=== PATIENT | male | born 1965 | race African-American/Black ===

== ENCOUNTER 2018-05-26 13:10 | Inpatient (IN) | payer OTHER ==
[2018-05-26 13:18] VITALS: BMI 21.5
--- NOTE | 2018-05-26 17:20 | HP ---
Admission ROS [facility] Chief Complaint: crack /cocaine and alcohol rehabilitation Allergies/Adverse Reactions: Allergies Allergy/AdvReac Type Severity Reaction Status Date / Time Penicillins Allergy Unknown Verified 05/26/18 16:22 History of Present Illness: 52 yo male with hx of nicotine, crack / cocaine and alcohol dependence is here seeking rehab. Last detox three yeas ago at [facility]. Patient was admitted to [facility] 05/18/18 -05/21/18 altered mental status, treated for pneumonia and give a follow up appt on medicine dept at [place] [phone]. Reports fall last night, does not recollect how he fell, has small abrasion on the right eye lid, and right red eye, reports hit the right side of his face with an unknown object, and did not seek medical attention for the fall. PMHX: HTN, anemia. Denies suicidal / homicidal ideation. Longest period of sobriety eight months ago. Denies hx of seizures or blackouts. Exam Limitations: No Limitations - Ebola screening Have you traveled outside of the country in the last 21 days: No Have you had contact with anyone from an Ebola affected area: No Have you been sick,other than usual withdrawal symptoms: No Do you have a fever: No - Review of Systems Constitutional: No Symptoms Reported EENT: reports: See HPI Respiratory: reports: No Symptoms reported Cardiac: reports: No Symptoms Reported GI: reports: No Symptoms Reported : reports: No Symptoms Reported Musculoskeletal: reports: No Symptoms Reported Integumentary: reports: No Symptoms Reported Neuro: reports: No Symptoms reported Endocrine: reports: No Symptoms Reported Hematology: reports: See HPI, Anemia Psychiatric: reports: Orientated x3, Anxious Other Systems: Reviewed and Negative Patient History - Patient Medical History Hx Anemia: Yes Hx Asthma: No Hx Chronic Obstructive Pulmonary Disease (COPD): No Hx Cancer: No Hx Cardiac Disorders: No Hx Congestive Heart Failure: No Hx Hypertension: Yes Hx Hypercholesterolemia: No Hx Pacemaker: No HX Cerebrovascular Accident: No Hx Seizures: No Hx Dementia: No Hx Diabetes: No Hx Gastrointestinal Disorders: No Hx Liver Disease: No Hx Genitourinary Disorders: No Hx Sexually Transmitted Disorders: No Hx Renal Disease (ESRD): No Hx Thyroid Disease: No Hx Human Immunodeficiency Virus (HIV): Yes (Last tested three months ago reports NEG results ) Hx Hepatitis C: No Hx Depression: No Hx Suicide Attempt: No Hx Bipolar Disorder: No Hx Schizophrenia: No - Patient Surgical History Past Surgical History: No - PPD History Previous Implant?: No Documented Results: Negative w/proof PPD to be Administered?: Yes - Smoking Cessation Smoking history: Current every day smoker Have you smoked in the past 12 months: Yes Aproximately how many cigarettes per day: 20 Hx Chewing Tobacco Use: No Initiated information on smoking cessation: Yes 'Breaking Loose' booklet given: 05/26/18 - Substance & Tx. History Hx Alcohol Use: Yes Hx Substance Use: Yes Substance Use Type: Alcohol, Cocaine Hx Substance Use Treatment: Yes ([facility] three years ago ) - Substances Abused Alcohol Route: Oral Frequency: 1-2 times per week Amount used: 1 pint Age of first use: 9 Date of Last Use: 05/24/18 Crack Route: Smoking Frequency: Daily Amount used: $100 and up Age of first use: 18 Date of Last Use: 05/18/18 Family Disease History - Family Disease History Family History: Denies Admission Physical Exam [facility] - Vital Signs Vital Signs: Vital Signs - 24 hr 05/26/18 13:17 Temperature 98.7 F Pulse Rate 88 Respiratory 18 Rate Blood Pressure 147/97 - Physical General Appearance: Yes: Disheveled, Thin, Anxious HEENTM: Yes: Hearing grossly Normal, Normocephalic, Normal Voice, MERLENE, Pharynx Normal, Tm's normal, Lessions (right eye lid), Other (right eye erythema) Respiratory: Yes: Chest Non-Tender, Lungs Clear, Normal Breath Sounds, No Respiratory Distress, No Accessory Muscle Use Neck: Yes: Within Normal Limits Breast: Yes: Breast Exam Deferred Cardiology: Yes: Regular Rhythm, Regular Rate Abdominal: Yes: Normal Bowel Sounds, Non Tender, Flat, Soft Genitourinary: Yes: Within Normal Limits Back: Yes: Normal Inspection Musculoskeletal: Yes: full range of Motion, Gait Steady, Pelvis Stable Extremities: Yes: Normal Capillary Refill, Normal Inspection, Normal Range of Motion, Non-Tender Neurological: Yes: vegetable preparer II-XII NML intact, Fully Oriented, Alert, Motor Strength 5/5, Depressed Affect Integumentary: Yes: Normal Color, Warm, Moist Lymphatic: Yes: Within Normal Limits - Diagnostic (1) Hypertension Current Visit: Yes Status: Chronic Qualifiers: Hypertension type: essential hypertension Qualified Code(s): I10 - Essential (primary) hypertension (2) Anemia Current Visit: Yes Status: Chronic Qualifiers: Anemia type: unspecified type Qualified Code(s): D64.9 - Anemia, unspecified (3) Fall Current Visit: Yes Status: Acute Qualifiers: Encounter type: subsequent encounter Qualified Code(s): W19.XXXD - Unspecified fall, subsequent encounter (4) Alcohol dependence Current Visit: Yes Status: Acute Qualifiers: Substance use status: uncomplicated Qualified Code(s): F10.20 - Alcohol dependence, uncomplicated (5) Cocaine dependence Current Visit: Yes Status: Acute Qualifiers: Substance use status: uncomplicated Qualified Code(s): F14.20 - Cocaine dependence, uncomplicated Screened but not Admitted - Documentation of Visit Screened but not Admitted: Yes Left Prior to Completion of Assessment: No Insurance Authorization Denied: No Patient Does Not Meet Criteria for Admission: No Level of Care Recommended at this Time: ER Evaluation/Care (Patient suffered fall last night and injury to the right side of the face with unknown object. Tranferred to [facility] for further evaluation, transferred via [facility], endorsed to LUNA Travis and Dr. Jenkins.) [facility] Breath Alcohol Content Breath Alcohol Content: 0 Urine Drug Screen - Results Drug Screen Negative: Yes
[2018-05-26] MEDS ORDERED: hydrOXYzine PAMOATE 50 MG CAPSULE (FP) PO PRN (21:24)
[2018-05-26] MEDS ORDERED: IBUPROFEN 400 MG TABLET (FP) PO PRN (21:24)
[2018-05-26] MEDS ORDERED: ACETAMINOPHEN 325 MG TABLET (FP) PO PRN (21:24)
[2018-05-26] MEDS ORDERED: MAGNESIUM CITRATE 300 ML BOTTLE PO PRN (21:24)
[2018-05-26] MEDS ORDERED: P-EPHED 60MG/TRIPROLIDI 2.5MG TABLET PO PRN (21:24)
[2018-05-26] MEDS ORDERED: guaiFENesin/D-METHORPHAN HB 10 ML UNIT-DOSE CUPS PO PRN (21:24)
[2018-05-26] MEDS ORDERED: MENTHOL/PHENOL 1 EACH UD MM PRN (21:24)
[2018-05-26] MEDS ORDERED: LOPERAMIDE HCL 2 MG CAPSULE PO PRN (21:24)
[2018-05-26] MEDS ORDERED: MAG HYDROX/AL HYDROX/SIMETH 30 ML UNIT-DOSE CUP PO PRN (21:24)
[2018-05-26] MEDS ORDERED: NICOTINE POLACRILEX 2 MG GUM BUC PRN (21:24)
[2018-05-26] MEDS ORDERED: MAGNESIUM HYDROX 2400MG/30ML ORAL SUSPENSION 30 ML CUP PO PRN (21:24)
[2018-05-26] MEDS ORDERED: MELATONIN 5 MG TABLETS PO PRN (22:00)
[2018-05-26] MEDS ORDERED: TUBERCULIN PPD 5 TU/0.1ML VIAL ID ONE (23:44)
[2018-05-26] MEDS: THIAMINE HCL 100 MG TABLET (FP) PO SCH (23:53)
--- NOTE | 2018-05-27 07:33 | HP ---
Psychiatrist Admission - Data Date of interview: 05/27/18 Admission source: Outreach Identifying data: This is the first [facility] admission for 52 years old single Black male, father of a 30 years old son, unemployed with no source of income, living with family Medical History: Significant for anemia, hypertension and history of recent treatment for pneumonia at [facility] from 05/18/18 to 05/21/18. Patient told board writer that he was at [facility] for high blood pressure, not for pneumonia. However he is on Clindamycin Smokes cigarettes 1 ppd Psychiatric History: Denies history of previous psychiatric treatment Physical/Sexual Abuse/Trauma History: Denies history of emotional, physical or sexual abuse as well as DV relationship. No service Additional Comment: Reports history of multiple previous arrests including 4 felony convictions. Denies being on parole/probation at present Vital Signs: Vital Signs - 24 hr 05/26/18 05/26/18 05/27/18 13:17 23:53 00:30 Temperature 98.7 F 97.8 F Pulse Rate 88 90 Respiratory 18 18 18 Rate Blood Pressure 147/97 141/102 H 05/27/18 05/27/18 03:30 07:01 Temperature 99.1 F Pulse Rate 82 Respiratory 18 18 Rate Blood Pressure 143/89 Allergies/Adverse Reactions: Allergies Allergy/AdvReac Type Severity Reaction Status Date / Time Penicillins Allergy Unknown Verified 05/26/18 18:53 Date of last physical exam: 05/26/18 Concur with the findings of this exam: Yes - Substance Abuse/Tx History Hx Alcohol Use: Yes Hx Substance Use: Yes Substance Use Type: Alcohol (Started drinking alcohol at age 9, consumes one pint 1-2 times weekly. Last drank on 05/24/18), Cocaine (Started smoking crack cocaine at age 18, consumes $100 worth daily. Last smoked on 05/18/18) Hx Substance Use Treatment: Yes (@ previous inpt detox & 2 inpt rehab admissions ) Mental Status Exam - Mental Status Exam Alert and Oriented to: Time, Place, Person Cognitive Function: Fair Patient Appearance: Disheveled (Scar on left left side of face. Abraision right eyelid and redness right eye) Mood: Depressed Affect: Appropriate Patient Behavior: Cooperative Speech Pattern: Clear Voice Loudness: Normal Thought Process: Intact Thought Disorder: Not Present Hallucinations: Denies Suicidal Ideation: Denies Homicidal Ideation: Denies Insight/Judgement: Fair Sleep: Well Appetite: Good Muscle strength/Tone: Normal Gait/Station: Normal Psychiatric Findings - Problem List ([place] 1, 2,3) (1) Alcohol dependence Current Visit: Yes Status: Acute Qualifiers: Substance use status: uncomplicated Qualified Code(s): F10.20 - Alcohol dependence, uncomplicated (2) Cocaine dependence Current Visit: Yes Status: Acute Qualifiers: Substance use status: uncomplicated Qualified Code(s): F14.20 - Cocaine dependence, uncomplicated (3) Nicotine dependence Current Visit: Yes Status: Chronic (4) Anemia Current Visit: Yes Status: Chronic Qualifiers: Anemia type: unspecified type Qualified Code(s): D64.9 - Anemia, unspecified (5) Hypertension Current Visit: Yes Status: Chronic Qualifiers: Hypertension type: essential hypertension Qualified Code(s): I10 - Essential (primary) hypertension - Initial Treatment Plan Initial Treatment Plan: Monitor progress
[2018-05-27] MEDS: NICOTINE 14 MG/24 HOURS TOPICAL PATCH TD SCH (10:25)
[2018-05-27] MEDS: PRENATAL VITAMINS W/ FOLIC ACID TABLET (FP) PO SCH (10:26)
[2018-05-27] MEDS: amLODIPine BESYLATE 10 MG TABLET (FP) PO SCH (10:26)
[2018-05-27] MEDS: HYDROCHLOROTHIAZIDE 25 MG TABLET (FP) PO SCH (10:26)
--- NOTE | 2018-05-27 11:06 | EKG ---
Test Reason : Blood Pressure : / mmHG Vent. Rate : 083 BPM Atrial Rate : 083 BPM P-R Int : 168 ms QRS Dur : 094 ms QT Int : 384 ms P-R-T Axes : 066 057 070 degrees QTc Int : 451 ms NORMAL SINUS RHYTHM NORMAL ECG NO PREVIOUS ECGS AVAILABLE Confirmed by Osiel Smyth MD ([id number]) on 05/27/2018 11:06:17 AM Referred By: Confirmed By:Osiel Smyth MD
--- NOTE | 2018-05-27 11:20 | PN ---
[facility] Progress Note Note: ABRASION RIGHT EYELID DUE TO FALL PRE-ADMISSION. SEE H/P. BACITRACIN OINTMENT DIRECTED.
[2018-05-27] MEDS: PATIENT'S OWN MEDICATION (NON-FORMULARY) (Clindamycin [Cleocin -] 300 MG) PO SCH ×4 (11:26→17:09)
[2018-05-27] MEDS: BACITRACIN 0.9 GM PACKET TP SCH ×2 (11:31→21:09)
[2018-05-27 14:54] LABS: HEMOGLOBIN 14.4 GM/dL (11.7-16.9); MCH 28.3 pg (25.7-33.7); MCHC 31.9 g/dl (32.0-35.9); MEAN CELL VOLUME 88.6 fl (80-96); PLATELET COUNT 381 K/MM3 (134-434); RBC 5.08 M/mm3 (4.00-5.60); RDW 13.8 % (11.9-15.9); WHITE BLOOD COUNT 6.7 K/mm3 (4.0-10.0)
[2018-05-27 15:31] LABS: ALK PHOS 66 U/L (45-117); ANION GAP 6 MMOL/L (8-16); BILIRUBIN,TOTAL 0.4 mg/dL (0.2-1); BLOOD UREA NITROGEN 14 mg/dL (7-18); CALCIUM 8.7 mg/dL (8.5-10.1); CHLORIDE 105 mmol/L (98-107); CO2 30 mmol/L (21-32); CREATININE 0.8 mg/dL (0.55-1.3); GLUCOSE,RANDOM 77 mg/dL (74-106); POTASSIUM 4.2 mmol/L (3.5-5.1); SGOT/AST 33 U/L (15-37); SGPT/ALT 93 U/L (13-61); SODIUM 141 mmol/L (136-145); TOT PROT 6.7 g/dl (6.4-8.2)
[2018-05-27 18:52] LABS: URINE APPEARANCE CLEAR; URINE BILIRUBIN NEGATIVE (<2.0 mg/dL); URINE COLOR YELLOW; URINE GLUCOSE (UA) NEGATIVE (NEGATIVE); URINE KETONE NEGATIVE (NEGATIVE); URINE LEUK ESTERASE NEGATIVE (NEGATIVE); URINE NITRITE NEGATIVE (NEGATIVE); URINE PROTEIN NEGATIVE (NEGATIVE); URINE UROBILINOGEN NEGATIVE mg/dL (0.2-1.0)
[2018-05-27] MEDS: THIAMINE HCL 100 MG TABLET (FP) PO SCH (21:09)
[2018-05-28] MEDS: PATIENT'S OWN MEDICATION (NON-FORMULARY) (Clindamycin [Cleocin -] 300 MG) PO SCH ×4 (01:18→17:28)
[2018-05-28] MEDS: BACITRACIN 0.9 GM PACKET TP SCH ×2 (10:07→21:12)
[2018-05-28] MEDS: NICOTINE 14 MG/24 HOURS TOPICAL PATCH TD SCH (10:08)
[2018-05-28] MEDS: amLODIPine BESYLATE 10 MG TABLET (FP) PO SCH (10:08)
[2018-05-28] MEDS: HYDROCHLOROTHIAZIDE 25 MG TABLET (FP) PO SCH (10:08)
[2018-05-28] MEDS: PRENATAL VITAMINS W/ FOLIC ACID TABLET (FP) PO SCH (10:08)
[2018-05-28] MEDS: THIAMINE HCL 100 MG TABLET (FP) PO SCH (21:12)
[2018-05-29] MEDS: PATIENT'S OWN MEDICATION (NON-FORMULARY) (Clindamycin [Cleocin -] 300 MG) PO SCH ×5 (00:10→23:15)
[2018-05-29] MEDS: BACITRACIN 0.9 GM PACKET TP SCH ×2 (09:47→21:12)
[2018-05-29] MEDS: HYDROCHLOROTHIAZIDE 25 MG TABLET (FP) PO SCH (09:47)
[2018-05-29] MEDS: amLODIPine BESYLATE 10 MG TABLET (FP) PO SCH (09:47)
[2018-05-29] MEDS: NICOTINE 14 MG/24 HOURS TOPICAL PATCH TD SCH (09:48)
[2018-05-29] MEDS: PRENATAL VITAMINS W/ FOLIC ACID TABLET (FP) PO SCH (09:48)
[2018-05-29] MEDS: THIAMINE HCL 100 MG TABLET (FP) PO SCH (21:12)
[2018-05-30] MEDS: PATIENT'S OWN MEDICATION (NON-FORMULARY) (Clindamycin [Cleocin -] 300 MG) PO SCH ×4 (06:32→23:55)
[2018-05-30] MEDS: BACITRACIN 0.9 GM PACKET TP SCH ×2 (09:55→21:16)
[2018-05-30] MEDS: PRENATAL VITAMINS W/ FOLIC ACID TABLET (FP) PO SCH (09:55)
[2018-05-30] MEDS: NICOTINE 14 MG/24 HOURS TOPICAL PATCH TD SCH (09:56)
[2018-05-30] MEDS: HYDROCHLOROTHIAZIDE 25 MG TABLET (FP) PO SCH (09:56)
[2018-05-30] MEDS: amLODIPine BESYLATE 10 MG TABLET (FP) PO SCH (09:56)
[2018-05-30] MEDS: THIAMINE HCL 100 MG TABLET (FP) PO SCH (21:16)
[2018-05-31] MEDS: PATIENT'S OWN MEDICATION (NON-FORMULARY) (Clindamycin [Cleocin -] 300 MG) PO SCH ×3 (06:42→18:58)
[2018-05-31] MEDS: PRENATAL VITAMINS W/ FOLIC ACID TABLET (FP) PO SCH (09:44)
[2018-05-31] MEDS: amLODIPine BESYLATE 10 MG TABLET (FP) PO SCH (09:44)
[2018-05-31] MEDS: BACITRACIN 0.9 GM PACKET TP SCH ×2 (09:44→21:15)
[2018-05-31] MEDS: HYDROCHLOROTHIAZIDE 25 MG TABLET (FP) PO SCH (09:44)
[2018-05-31] MEDS: NICOTINE 14 MG/24 HOURS TOPICAL PATCH TD SCH (09:45)
[2018-05-31] MEDS: THIAMINE HCL 100 MG TABLET (FP) PO SCH (21:15)
[2018-06-01] MEDS: PATIENT'S OWN MEDICATION (NON-FORMULARY) (Clindamycin [Cleocin -] 300 MG) PO SCH ×4 (01:33→17:32)
[2018-06-01] MEDS: PRENATAL VITAMINS W/ FOLIC ACID TABLET (FP) PO SCH (09:37)
[2018-06-01] MEDS: BACITRACIN 0.9 GM PACKET TP SCH ×2 (09:37→21:08)
[2018-06-01] MEDS: HYDROCHLOROTHIAZIDE 25 MG TABLET (FP) PO SCH (09:37)
[2018-06-01] MEDS: amLODIPine BESYLATE 10 MG TABLET (FP) PO SCH (09:37)
[2018-06-01] MEDS: NICOTINE 14 MG/24 HOURS TOPICAL PATCH TD SCH (09:38)
[2018-06-01] MEDS: THIAMINE HCL 100 MG TABLET (FP) PO SCH (21:08)
[2018-06-02] MEDS: PATIENT'S OWN MEDICATION (NON-FORMULARY) (Clindamycin [Cleocin -] 300 MG) PO SCH ×5 (01:29→23:28)
[2018-06-02] MEDS: HYDROCHLOROTHIAZIDE 25 MG TABLET (FP) PO SCH (09:36)
[2018-06-02] MEDS: NICOTINE 14 MG/24 HOURS TOPICAL PATCH TD SCH (09:37)
[2018-06-02] MEDS: BACITRACIN 0.9 GM PACKET TP SCH ×2 (09:37→21:55)
[2018-06-02] MEDS: amLODIPine BESYLATE 10 MG TABLET (FP) PO SCH (09:37)
[2018-06-02] MEDS: PRENATAL VITAMINS W/ FOLIC ACID TABLET (FP) PO SCH (09:37)
[2018-06-02] MEDS: THIAMINE HCL 100 MG TABLET (FP) PO SCH (21:55)
[2018-06-03] MEDS: PATIENT'S OWN MEDICATION (NON-FORMULARY) (Clindamycin [Cleocin -] 300 MG) PO SCH ×3 (06:59→17:43)
[2018-06-03] MEDS: NICOTINE 14 MG/24 HOURS TOPICAL PATCH TD SCH (09:29)
[2018-06-03] MEDS: PRENATAL VITAMINS W/ FOLIC ACID TABLET (FP) PO SCH (09:29)
[2018-06-03] MEDS: HYDROCHLOROTHIAZIDE 25 MG TABLET (FP) PO SCH (09:29)
[2018-06-03] MEDS: amLODIPine BESYLATE 10 MG TABLET (FP) PO SCH (09:29)
[2018-06-03] MEDS: BACITRACIN 15 GM TUBE TOPICAL OINTMENT TP SCH ×2 (12:06→22:31)
[2018-06-03] MEDS ORDERED: PT OWN MED DRAWER 7, Y5N ONE (17:47)
[2018-06-03] MEDS: THIAMINE HCL 100 MG TABLET (FP) PO SCH (22:31)
[2018-06-04] MEDS: PATIENT'S OWN MEDICATION (NON-FORMULARY) (Clindamycin [Cleocin -] 300 MG) PO SCH ×5 (00:30→23:59)
[2018-06-04] MEDS: amLODIPine BESYLATE 10 MG TABLET (FP) PO SCH (09:56)
[2018-06-04] MEDS: BACITRACIN 15 GM TUBE TOPICAL OINTMENT TP SCH ×2 (09:56→21:13)
[2018-06-04] MEDS: PRENATAL VITAMINS W/ FOLIC ACID TABLET (FP) PO SCH (09:56)
[2018-06-04] MEDS: HYDROCHLOROTHIAZIDE 25 MG TABLET (FP) PO SCH (09:56)
[2018-06-04] MEDS: NICOTINE 14 MG/24 HOURS TOPICAL PATCH TD SCH (09:57)
[2018-06-04] MEDS: THIAMINE HCL 100 MG TABLET (FP) PO SCH (21:12)
[2018-06-05] MEDS: PATIENT'S OWN MEDICATION (NON-FORMULARY) (Clindamycin [Cleocin -] 300 MG) PO SCH ×4 (07:06→23:58)
[2018-06-05] MEDS: PRENATAL VITAMINS W/ FOLIC ACID TABLET (FP) PO SCH (09:49)
[2018-06-05] MEDS: NICOTINE 14 MG/24 HOURS TOPICAL PATCH TD SCH (09:49)
[2018-06-05] MEDS: amLODIPine BESYLATE 10 MG TABLET (FP) PO SCH (09:49)
[2018-06-05] MEDS: BACITRACIN 15 GM TUBE TOPICAL OINTMENT TP SCH ×2 (09:49→22:11)
[2018-06-05] MEDS: HYDROCHLOROTHIAZIDE 25 MG TABLET (FP) PO SCH (09:49)
[2018-06-05] MEDS: THIAMINE HCL 100 MG TABLET (FP) PO SCH (22:11)
[2018-06-06] MEDS: PATIENT'S OWN MEDICATION (NON-FORMULARY) (Clindamycin [Cleocin -] 300 MG) PO SCH ×3 (06:37→17:49)
[2018-06-06] MEDS: PRENATAL VITAMINS W/ FOLIC ACID TABLET (FP) PO SCH (09:52)
[2018-06-06] MEDS: HYDROCHLOROTHIAZIDE 25 MG TABLET (FP) PO SCH (09:52)
[2018-06-06] MEDS: amLODIPine BESYLATE 10 MG TABLET (FP) PO SCH (09:52)
[2018-06-06] MEDS: BACITRACIN 15 GM TUBE TOPICAL OINTMENT TP SCH ×2 (09:53→21:28)
[2018-06-06] MEDS: NICOTINE 14 MG/24 HOURS TOPICAL PATCH TD SCH (09:53)
[2018-06-06] MEDS: THIAMINE HCL 100 MG TABLET (FP) PO SCH (21:28)
[2018-06-07] MEDS: PATIENT'S OWN MEDICATION (NON-FORMULARY) (Clindamycin [Cleocin -] 300 MG) PO SCH ×4 (00:28→17:35)
[2018-06-07] MEDS: PRENATAL VITAMINS W/ FOLIC ACID TABLET (FP) PO SCH (10:42)
[2018-06-07] MEDS: NICOTINE 14 MG/24 HOURS TOPICAL PATCH TD SCH (10:42)
[2018-06-07] MEDS: HYDROCHLOROTHIAZIDE 25 MG TABLET (FP) PO SCH (10:42)
[2018-06-07] MEDS: amLODIPine BESYLATE 10 MG TABLET (FP) PO SCH (10:42)
[2018-06-07] MEDS: BACITRACIN 15 GM TUBE TOPICAL OINTMENT TP SCH ×2 (10:42→21:11)
[2018-06-07] MEDS: THIAMINE HCL 100 MG TABLET (FP) PO SCH (21:11)
[2018-06-08] MEDS: PATIENT'S OWN MEDICATION (NON-FORMULARY) (Clindamycin [Cleocin -] 300 MG) PO SCH ×4 (00:50→17:25)
[2018-06-08] MEDS: BACITRACIN 15 GM TUBE TOPICAL OINTMENT TP SCH ×2 (10:05→21:30)
[2018-06-08] MEDS: NICOTINE 14 MG/24 HOURS TOPICAL PATCH TD SCH (10:05)
[2018-06-08] MEDS: HYDROCHLOROTHIAZIDE 25 MG TABLET (FP) PO SCH (10:05)
[2018-06-08] MEDS: PRENATAL VITAMINS W/ FOLIC ACID TABLET (FP) PO SCH (10:05)
[2018-06-08] MEDS: amLODIPine BESYLATE 10 MG TABLET (FP) PO SCH (11:00)
[2018-06-08] MEDS: THIAMINE HCL 100 MG TABLET (FP) PO SCH (21:30)
[2018-06-09] MEDS: PATIENT'S OWN MEDICATION (NON-FORMULARY) (Clindamycin [Cleocin -] 300 MG) PO SCH ×4 (00:09→17:23)
[2018-06-09] MEDS: HYDROCHLOROTHIAZIDE 25 MG TABLET (FP) PO SCH (10:14)
[2018-06-09] MEDS: NICOTINE 14 MG/24 HOURS TOPICAL PATCH TD SCH (10:14)
[2018-06-09] MEDS: amLODIPine BESYLATE 10 MG TABLET (FP) PO SCH (10:14)
[2018-06-09] MEDS: BACITRACIN 15 GM TUBE TOPICAL OINTMENT TP SCH ×2 (10:14→21:06)
[2018-06-09] MEDS: PRENATAL VITAMINS W/ FOLIC ACID TABLET (FP) PO SCH (10:14)
[2018-06-09] MEDS: THIAMINE HCL 100 MG TABLET (FP) PO SCH (21:05)
[2018-06-10] MEDS: PATIENT'S OWN MEDICATION (NON-FORMULARY) (Clindamycin [Cleocin -] 300 MG) PO SCH ×2 (00:24→06:56)
[2018-06-10 06:42] VITALS: TEMP 98
--- NOTE | 2018-06-10 09:27 | PN ---
Psychiatric Progress Note Vital Signs: Vital Signs Period Temp Pulse Resp BP Sys/Madrigal Pulse Ox Last 24 Hr 98.0 F 88-94 - 133-142/86-95 Date of Session: 06/10/18 Chief Complaint:: Discharge Note HPI: Patient addressing Alcohol and Cocaine dependence comorbid with Nicotine Dependence ROS: Anemia, HTN were medically managed Current Medications: Active Medications Generic Name Dose Route Start Last Admin Trade Name Freq PRN Reason Stop Dose Admin Acetaminophen 650 mg 05/26/18 21:24 Tylenol - PO Q4H PRN FEVER Al Hydroxide/Mg Hydroxide 30 ml 05/26/18 21:24 Mylanta Oral Suspension - PO Q6H PRN DYSPEPSIA Amlodipine Besylate 10 mg 05/27/18 10:00 06/09/18 10:14 Norvasc - PO 10 mg DAILY [facility] Administration Bacitracin 1 applic 06/03/18 10:00 06/09/18 21:06 Bacitracin - TP Not Given BID [facility]E Eucalyptus/Menthol/Phenol/Sorbitol 1 each 05/26/18 21:24 Cepastat Lozenge - MM Q4H PRN SORE THROAT Guaifenesin 10 ml 05/26/18 21:24 Robitussin Dm - PO Q6H PRN COUGH Hydrochlorothiazide 50 mg 05/27/18 10:00 06/09/18 10:14 Hctz - PO 50 mg DAILY [facility] Administration Hydroxyzine Pamoate 50 mg 05/26/18 21:24 Vistaril - PO Q4H PRN AGITATION Ibuprofen 400 mg 05/26/18 21:24 Motrin - PO Q6H PRN Pain level 4-6 Loperamide HCl 4 mg 05/26/18 21:24 Imodium - PO Q6H PRN DIARRHEA Magnesium Citrate 300 ml 05/26/18 21:24 Citroma - PO Q48H PRN CONSTIPATION Magnesium Hydroxide 30 ml 05/26/18 21:24 Milk Of Magnesia - PO DAILY PRN CONSTIPATION Melatonin 5 mg 05/26/18 22:00 Melatonin PO HS PRN INSOMNIA Nicotine 14 mg 05/27/18 10:00 06/09/18 10:14 Nicoderm Patch - TD Not Given DAILY MAR[facility]E Nicotine Polacrilex 2 mg 05/26/18 21:24 Nicorette Gum - BUC Q2H PRN NICOTINE REPLACEMENT RX Non-Formulary Medication 300 mg 05/27/18 18:00 06/10/18 06:56 Clindamycin [Cleocin -] PO 300 mg Q6H [facility] Administration Multivit/Folic Acid/Iron 1 tab 05/27/18 10:00 06/09/18 10:14 Vitamins (Sjr) - PO 1 tab DAILY [facility] Administration Pseudoephedrine/Triprolidine 1 combo 05/26/18 21:24 Actifed - PO TID PRN NASAL CONGESTION Thiamine HCl 100 mg 05/26/18 22:00 06/09/18 21:05 Vitamin B1 - PO 100 mg HS [facility] Administration Current Side Effect: No Lab tests ordered: Yes Lab tests reviewed: Yes Provider note:: Patient has completed this program today. He has met his treatment goals and will continue to address his issues in outpatient treatment at [facility] at [address] [place] [address]. Told literary writer that from his participation in this program, he has learned to do things one day at a time. He is stable for discharge today Total face to face time:: 35 Mental Status Exam - Mental Status Exam Alert and Oriented to: Time, Place, Person Cognitive Function: Fair Patient Appearance: Well Groomed Mood: Hopeful, Euthymic Affect: Appropriate Patient Behavior: Cooperative Voice Loudness: Normal Thought Process: Intact Thought Disorder: Not Present Hallucinations: Denies Suicidal Ideation: Denies Homicidal Ideation: Denies Insight/Judgement: Fair Sleep: Well Appetite: Good Muscle strength/Tone: Normal Gait/Station: Normal Psychiatric Treatment Plan - Problem List (1) Alcohol dependence Current Visit: Yes Qualifiers: Substance use status: uncomplicated Qualified Code(s): F10.20 - Alcohol dependence, uncomplicated (2) Cocaine dependence Current Visit: Yes Qualifiers: Substance use status: uncomplicated Qualified Code(s): F14.20 - Cocaine dependence, uncomplicated (3) Nicotine dependence Current Visit: Yes (4) Anemia Current Visit: Yes Qualifiers: Anemia type: unspecified type Qualified Code(s): D64.9 - Anemia, unspecified (5) Hypertension Current Visit: Yes Qualifiers: Hypertension type: essential hypertension Qualified Code(s): I10 - Essential (primary) hypertension Initial treatment plan: Patient is discharged today and referred to [facility] for outpatient treatment
[2018-06-10] MEDS: PRENATAL VITAMINS W/ FOLIC ACID TABLET (FP) PO SCH (09:41)
[2018-06-10] MEDS: amLODIPine BESYLATE 10 MG TABLET (FP) PO SCH (09:41)
[2018-06-10] MEDS: HYDROCHLOROTHIAZIDE 25 MG TABLET (FP) PO SCH (09:41)
[2018-06-10] MEDS: BACITRACIN 15 GM TUBE TOPICAL OINTMENT TP SCH (09:42)
[2018-06-10] MEDS: NICOTINE 14 MG/24 HOURS TOPICAL PATCH TD SCH (09:42)
--- NOTE | 2018-06-10 09:44 | PN ---
[facility] Progress Note Note: PT COMPLETED REHAB AND DISCHARGING TODAY. PT REQUESTING BP MEDS AND REPORTS HE HAS NO PRIMARY CARE PROVIDER BUT GETS MEDS AT THE ER. PT REPORTS [facility] IS CLOSE TO HOME. PT INSTRUCTED TO FOLLOW UP AT [facility] FOR PRIMARY CARE AND MEDICAL MANAGEMENT.COURTESY RX FOR NORVASC 10 MG PO DAILY #30 AND HYDROCHLOROTHIAZIDE 25 MG PO DAILY #30 SENT TO PT'S [facility] IN THIS SYSTEM. Vital Signs - 24 hr 06/09/18 06/10/18 06/10/18 10:00 00:30 03:30 Temperature Pulse Rate 94 H Respiratory 18 18 18 Rate Blood Pressure 133/86 06/10/18 06:41 Temperature 98.0 F Pulse Rate 88 Respiratory 16 Rate Blood Pressure 142/95 Laboratory Tests 05/27/18 05/27/18 05/27/18 10:45 10:45 10:45 WBC 6.7 RBC 5.08 Hgb 14.4 Hct 45.0 MCV 88.6 MCH 28.3 MCHC 31.9 L RDW 13.8 Plt Count 381 MPV 9.0 Sodium 141 Potassium 4.2 Chloride 105 Carbon Dioxide 30 Anion Gap 6 L BUN 14 Creatinine 0.8 Creat Clearance w eGFR > 60 Random Glucose 77 Calcium 8.7 Total Bilirubin 0.4 AST 33 ALT 93 H Alkaline Phosphatase 66 Total Protein 6.7 Albumin 3.0 L Urine Color Urine Appearance Urine pH Ur Specific [place] Urine Protein Urine Glucose (UA) Urine Ketones Urine Blood Urine Nitrite Urine Bilirubin Urine Urobilinogen Ur Leukocyte Esterase RPR Titer Nonreactive 05/27/18 16:30 WBC RBC Hgb Hct MCV MCH MCHC RDW Plt Count MPV Sodium Potassium Chloride Carbon Dioxide Anion Gap BUN Creatinine Creat Clearance w eGFR Random Glucose Calcium Total Bilirubin AST ALT Alkaline Phosphatase Total Protein Albumin Urine Color Yellow Urine Appearance Clear Urine pH 6.0 Ur Specific [place] 1.021 Urine Protein Negative Urine Glucose (UA) Negative Urine Ketones Negative Urine Blood Negative Urine Nitrite Negative Urine Bilirubin Negative Urine Urobilinogen Negative Ur Leukocyte Esterase Negative RPR Titer PLAN;FOLLOW UP WITH AFTERCARE F/U WITH PRIMARY CARE WITH [facility] IN 1-2 WEEKS AFTER DISCHARGE
[2018-06-10 10:28] VITALS: BP 120/98; PULSE 103
== END 2018-06-10 11:20 | disposition home or self-care (01) | DRG 772 ==
LOC: YASAS 13:10 → Y5N 22:53
PROVIDERS: ADMIT Psychiatry & Neurology Psychiatry; ATTEND Psychiatry & Neurology Psychiatry
PROC: HZ42ZZZ Group Counseling for Substance Abuse Treatment, Cognitive-Behavioral (ICD-10-PCS; principal; 2018-05-26)
DX: F10.20 Alcohol dependence, uncomplicated (principal); F14.20 Cocaine dependence, uncomplicated; F17.210 Nicotine dependence, cigarettes, uncomplicated; I10 Essential (primary) hypertension; D64.9 Anemia, unspecified; S00.211A Abrasion of right eyelid and periocular area, initial encounter; W01.10XA Fall on same level from slipping, tripping and stumbling with subsequent striking against unspecified object, initial encounter; Y93.89 Activity, other specified; Y92.89 Other specified places as the place of occurrence of the external cause
CPT/HCPCS: 36415; 80053; 81003; 85027; 86593; 93005; 93010

== ENCOUNTER 2018-05-26 18:44 | Emergency (ER) | payer OTHER ==
[2018-05-26 18:55] VITALS: BP 145/92; PULSE 86; TEMP 98.7; BMI 21.5
--- NOTE | 2018-05-26 19:58 | PDOC ---
History of Present Illness - General Chief Complaint: Injury Stated Complaint: Injury Time Seen by Provider: 05/26/18 19:54 - History of Present Illness Initial Comments: 05/26/18 19:55 52 yo M with h/o nicotine, crack/cocaine and Etoh dependence, HTN, BIBA from rehab facility Recent admission [place]/18/18-05/21/[facility] [place] [facility] [place] Patient denies N/V, F,C, CP, SOB, urinary complaints, abdominal pain, diarrhea, constipation, lightheadedness, weakness, sensory changes. PMHx: as noted above ROS: as noted SHx: Allergies: 05/26/18 19:56 Past History - Past Medical History Allergies/Adverse Reactions: Allergies Allergy/AdvReac Type Severity Reaction Status Date / Time Penicillins Allergy Unknown Verified 05/26/18 18:53 Home Medications: Ambulatory Orders Amlodipine Besylate [Norvasc -] 10 mg PO DAILY 05/26/18 Clindamycin [Cleocin -] 600 mg PO Q6H 05/26/18 Hydrochlorothiazide [Hctz -] 50 mg PO DAILY 05/26/18 Thiamine Mononitrate [Vitamin B-1] 100 mg PO DAILY 05/26/18 Anemia: Yes Asthma: No Cancer: No Cardiac Disorders: No CVA: No COPD: No CHF: No Dementia: No Diabetes: No GI Disorders: No Disorders: No HTN: Yes Hypercholesterolemia: No Liver Disease: No Psychiatric Problems: Yes (etoh and crack abuse) Seizures: No Thyroid Disease: No - Suicide/Smoking/Psychosocial Hx Smoking History: Never smoked Have you smoked in the past 12 months: Yes Number of Cigarettes Smoked Daily: 20 Information on smoking cessation initiated: No 'Breaking Loose' booklet given: 05/26/18 Hx Alcohol Use: No Drug/Substance Use Hx: No Substance Use Type: Alcohol, Cocaine Hx Substance Use Treatment: Yes ([facility] three years ago ) Review of Systems - Review of Systems Comments:: 05/26/18 19:55 GENERAL/CONSTITUTIONAL: No fever or chills. No weakness. HEAD, EYES, EARS, NOSE AND THROAT: No change in vision. No ear pain or discharge. No sore throat. CARDIOVASCULAR: No chest pain or shortness of breath RESPIRATORY: No cough, wheezing, or hemoptysis. GASTROINTESTINAL: No nausea, vomiting, diarrhea or constipation. GENITOURINARY: No dysuria, frequency, or change in urination. MUSCULOSKELETAL: No joint or muscle swelling or pain. No neck or back pain. SKIN: No rash NEUROLOGIC: No headache, vertigo, loss of consciousness, or change in strength/ sensation. ENDOCRINE: No increased thirst. No abnormal weight change HEMATOLOGIC/LYMPHATIC: No anemia, easy bleeding, or history of blood clots. ALLERGIC/IMMUNOLOGIC: No hives or skin allergy. *Physical Exam - Vital Signs Last Vital Signs Temp Pulse Resp BP Pulse Ox 98.7 F 86 16 145/92 100 05/26/18 18:49 05/26/18 18:49 05/26/18 18:49 05/26/18 18:49 05/26/18 18:49 - Physical Exam Comments: 05/26/18 19:55 GENERAL: Awake, alert, and fully oriented, in no acute distress HEAD: No signs of trauma, normocephalic, atraumatic EYES: PERRLA, EOMI, sclera anicteric, conjunctiva clear ENT: Auricles normal inspection, hearing grossly normal, nares patent, oropharynx clear without exudates. Moist mucosa NECK: Normal ROM, supple, no lymphadenopathy, JVD, or masses LUNGS: No distress, speaks full sentences, clear to auscultation bilaterally HEART: Regular rate and rhythm, normal S1 and S2, no murmurs, rubs or gallops, peripheral pulses normal and equal bilaterally. ABDOMEN: Soft, nontender, normoactive bowel sounds. No guarding, no rebound. No masses EXTREMITIES : Normal inspection, Normal range of motion, no edema. No clubbing or cyanosis. NEUROLOGICAL: Cranial nerves II through XII grossly intact. Normal speech, normal gait, no focal sensorimotor deficits SKIN: Warm, Dry, normal turgor, no rashes or lesions noted *DC/Admit/Observation/Transfer - Referrals - Patient Instructions Additional Instructions: Please return to the emergency department with any new or worsening symptoms or concerns. Please follow up with your primary care physician within 72 hours. - Post Discharge Activity - Attestations Physician Attestion: 05/26/18 19:56 I attest to the information provided in this note.
--- NOTE | 2018-05-26 20:14 | PDOC ---
History of Present Illness - General Chief Complaint: Injury Stated Complaint: Injury Time Seen by Provider: 05/26/18 19:54 History Source: Patient - History of Present Illness Initial Comments: 52 y/o M w/PMH of tobacco dependence, crack/cocaine abuse, alcohol dependance presents to the ER after being sent from [facility] where he was seeking help for alcohol and crack/cocaine detox. He was found to have a R eye abrasion when he went to [facility] and said he thinks he had fallen but does not remember the events that led to the fall as he was drunk. He uses crack daily by smoking and drinks 1x/week and drinks 12 beers at that time. He remembers waking up in front of his house but did not notice the abrasion at the time. He has no pain at the site of injury. He denies N/V/F/C, CRUZ, dizziness, change in vision, CP, SOB, cough, change in BMs, blood in stool, dysuria, frequency, blood in urine, LE edema. Of note pt was recently admitted to [facility] 05/18-05/21/18 for AMS and treated for PNA. He was discharged with Hctz and amlodipine and Vitamin B1. Past History - Past Medical History Allergies/Adverse Reactions: Allergies Allergy/AdvReac Type Severity Reaction Status Date / Time Penicillins Allergy Unknown Verified 05/26/18 18:53 Home Medications: Ambulatory Orders Amlodipine Besylate [Norvasc -] 10 mg PO DAILY 05/26/18 Clindamycin [Cleocin -] 300 mg PO QID 05/26/18 Hydrochlorothiazide [Hctz -] 50 mg PO DAILY 05/26/18 Thiamine Mononitrate [Vitamin B-1] 100 mg PO DAILY 05/26/18 Anemia: Yes Asthma: No Cancer: No Cardiac Disorders: No CVA: No COPD: No CHF: No Dementia: No Diabetes: No GI Disorders: No Disorders: No HTN: Yes Hypercholesterolemia: No Liver Disease: No Psychiatric Problems: Yes (etoh and crack abuse) Seizures: No Thyroid Disease: No - Suicide/Smoking/Psychosocial Hx Smoking History: Never smoked Have you smoked in the past 12 months: No Number of Cigarettes Smoked Daily: 20 Information on smoking cessation initiated: No 'Breaking Loose' booklet given: 05/26/18 Hx Alcohol Use: No Drug/Substance Use Hx: No Substance Use Type: Alcohol, Cocaine Hx Substance Use Treatment: Yes ([facility] three years ago ) Review of Systems - Review of Systems Able to Perform ROS?: Yes Constitutional: No: Chills, Fever HEENTM: No: Blurred Vision Respiratory: No: Cough, Shortness of Breath Cardiac (ROS): No: Chest Pain, Edema, Lightheadedness, Palpitations ABD/GI: No: Diarrhea, Nausea, Vomiting : No: Burning, Dysuria, Frequency Integumentary: Yes: Other (Abrasion over R eyelid) Neurological: No: Headache, Numbness, Paresthesia, Tingling, Tremors, Weakness *Physical Exam - Vital Signs Last Vital Signs Temp Pulse Resp BP Pulse Ox 98.7 F 86 16 145/92 100 05/26/18 18:49 05/26/18 18:49 05/26/18 18:49 05/26/18 18:49 05/26/18 18:49 - Physical Exam General Appearance: Yes: Appropriately Dressed. No: Apparent Distress HEENT: positive: EOMI, Normal Voice Neck: positive: Supple. negative: Tender Respiratory/Chest: positive: Lungs Clear, Normal Breath Sounds. negative: Respiratory Distress, Accessory Muscle Use, Rales, Rhonchi, Wheezing Cardiovascular: positive: Regular Rhythm, Regular Rate, S1, S2. negative: Edema , Murmur Gastrointestinal/Abdominal: positive: Normal Bowel Sounds, Soft. negative: Tender Extremity: positive: Normal Range of Motion. negative: Pedal Edema Integumentary: positive: Other (Abrasion over R eyelid) Neurologic: positive: Fully Oriented, Alert Medical Decision Making - Medical Decision Making 05/26/18 20:[address] at this time. 05/26/18 21:[address] is negative with no evidence of acute intracranial pathology. Pt still feels well. Would like to return to detox. Pt told to return to ER if he develops symptoms including: nausea, vomiting, fevers, change in vision, or worsening of current symptoms or any other new concerning symptoms. Pt to be brought [facility] to [facility]. *DC/Admit/Observation/Transfer Diagnosis at time of Disposition: Abrasion - Discharge Dispostion Disposition: TRANSFER ACUTE CARE/OTHER HOSP Condition at time of disposition: Fair Decision to Admit order: No - Referrals - Patient Instructions Additional Instructions: Please return to the emergency department with any new or worsening symptoms or concerns. Please follow up with your primary care physician within 72 hours. - Post Discharge Activity
--- NOTE | 2018-05-26 22:00 | PDOC ---
Attending Attestation - Resident Resident Name: Patrice Jj - ED Attending Attestation I have performed the following: I have examined & evaluated the patient, The case was reviewed & discussed with the resident, I agree w/resident's findings & plan, Exceptions are as noted - HPI HPI: 05/26/18 22:00 52-year-old male brought in by ambulance from [facility] for CAT scan of his head. Patient was seen at intake at [facility] and head trauma was noted. Patient did have a superficial laceration on his face and admitted to head trauma recently - Physicial Exam PE: 05/26/18 22:01 head superficial laceration eyes tim eomi neck no c spine tenderness lungs cta b.l cvs [id number] abd no rebound no cva tenderness ext no deformities skin warm and dry neuro alert,conversant psych appropriate - Medical Decision Making 05/26/18 22:00 CAT scan of the head was negative for any acute pathology, no mass, no midline shift, no skull fracture and no intra-cranial pathology.,NO bleed 05/26/18 22:03 imp closed head trauma.superficial laceration plan d/c back to [facility]
== END 2018-05-26 22:36 | disposition other institution (70) ==
LOC: JER 18:44
DX: S00.211A Abrasion of right eyelid and periocular area, initial encounter (principal); W18.39XA Other fall on same level, initial encounter; Y93.89 Activity, other specified; Y92.89 Other specified places as the place of occurrence of the external cause; Y99.8 Other external cause status; I10 Essential (primary) hypertension; F10.20 Alcohol dependence, uncomplicated; F14.10 Cocaine abuse, uncomplicated; F17.210 Nicotine dependence, cigarettes, uncomplicated
CPT/HCPCS: 70450-TC; 99281-25